=== PATIENT | female | born 1985 | race African-American/Black ===

== ENCOUNTER 2016-12-08 16:50 | Emergency (ER) | payer SELFPAY ==
[~2016-12-08] VITALS: Ht 165.1 cm; Wt 100.7 kg
[2016-12-08 17:29] VITALS: BP 142/80
--- NOTE | 2016-12-08 17:42 | PHYS DOC ---
Past Medical History Past Medical History: Diabetes-Type II Past Surgical History: No Surgical History Smoking: Less than 1pk/day Alcohol Use: Occasionally Drug Use: Marijuana Adult General Chief Complaint Chief Complaint: FEVER HPI HPI Patient is a 31 year old female who presents with fever for 2 days. She reports temperature up to 101F. She has had nasal congestion with nonproductive cough and shortness of breath. She denies sore throat, ear pain, nausea, vomiting, or abdominal pain. Her son was diagnosed with the flu last week. She does not have a PCP. Review of Systems Review of Systems Constitutional: Reports fever. Eyes: Denies change in visual acuity, redness, or eye pain. [] HENT: Denies ear pain or sore throat. Reports nasal congestion. Respiratory: Reports cough and shortness of breath. Cardiovascular: Denies chest pain, palpitations or edema. [] GI: Denies abdominal pain, nausea, vomiting, bloody stools or diarrhea. [] : Denies dysuria, hematuria or urinary frequency. [] Musculoskeletal: Denies back pain or joint pain. [] Integument: Denies rash or skin lesions. [] Neurologic: Denies headache, focal weakness or sensory changes. [] All systems reviewed and negative unless otherwise stated in the HPI. Physical Exam Physical Exam Constitutional: Well developed, well nourished, no acute distress, non-toxic appearance. [] HENT: Normocephalic, atraumatic, bilateral external ears normal, oropharynx moist, no oral exudates, nose normal. Bilateral TMs without erythema or bulging. There is mild posterior pharyngeal erythema without significant tonsillar edema. Bilateral nasal turbinates are swollen and erythematous. Eyes: PERRLA, EOMI, conjunctiva normal, no discharge. [] Neck: Normal range of motion, no tenderness, supple, no stridor. [] Cardiovascular: Heart rate regular rhythm, no murmur [] Lungs & Thorax: Bilateral breath sounds clear to auscultation without wheezes, rales, or rhonchi. Abdomen: Bowel sounds normal, soft, no tenderness, no masses, no pulsatile masses. [] Skin: Warm, dry, no erythema, no rash. [] Neurologic: Alert and oriented X 3, normal motor function, normal sensory function, no focal deficits noted. [] Psychologic: Affect normal, judgement normal, mood normal. [] Current Patient Data Vital Signs Vital Signs Date Time Temp Pulse Resp B/P Pulse Ox O2 Delivery O2 Flow Rate FiO2 12/08/16 17:29 98.6 98 18 100 Room Air 98.6 Lab Values Laboratory Tests Test 12/08/16 17:33 Influenza Type A Antigen Negative (NEGATIVE) Influenza Type B Antigen Negative (NEGATIVE) EKG EKG [] Radiology/Procedures Radiology/Procedures [] Course & Med Decision Making Course & Med Decision Making Pertinent Labs and Imaging studies reviewed. (See chart for details) [] Dragon Disclaimer Dragon Disclaimer This electronic medical record was generated, in whole or in part, using a voice recognition dictation system. Departure Departure Impression: Primary Impression: URI (upper respiratory infection) Disposition: HOME, SELF-CARE Condition: STABLE Referrals: NO PCP (PCP) Patient Instructions: Upper Respiratory Infection, Adult, Ucfl-vo-Aliv Additional Instructions: Your flu test was negative. You appear to have a viral illness. Please take all of the prescribed steroids, even if you are feeling better. Please use the prescribed inhaler as needed for cough or shortness of breath. Do not use more often than directed. Please follow up with a primary care provider if your symptoms continue. Return to the emergency department if you have any new or concerning symptoms. Scripts Prednisone 20 Mg [id number] Mg PO DAILY 5 Days Prov:TALAT ALATORRE 12/08/16 Albuterol Sulfate (Proair Hfa Inhaler)8.5 Gm [id number] Puff INH Q4HRS PRN SHORTNESS OF BREATH #1 INHALER Prov:TALAT ALATORRE 12/08/16 Problem Qualifiers Primary Impression: URI (upper respiratory infection) URI type: unspecified viral URI Qualified Code: J06.9 - Acute upper respiratory infection, unspecified TALAT ALATORRE Dec 08, 2016 17:42
[2016-12-08 18:38] LABS: OBC FLU VALID
[2016-12-08] MEDS ORDERED: PROAIR HFA8.5 GM INH (19:17)
[2016-12-08] MEDS ORDERED: PRED20TA PO (19:17)
== END 2016-12-08 19:20 | disposition home or self-care (01) ==
LOC: ER 16:50
DX: J06.9 Acute upper respiratory infection, unspecified (principal); E11.9 Type 2 diabetes mellitus without complications; F17.210 Nicotine dependence, cigarettes, uncomplicated; F12.10 Cannabis abuse, uncomplicated
CPT/HCPCS: 87804; 99284